=== PATIENT | female | born 1980 | race Caucasian/White ===

== ENCOUNTER → 2023-05-18 09:15 | Outpatient (CLI) | payer OTHER, SELFPAY ==
--- NOTE | 2023-05-18 09:26 | XR_ITS ---
FINAL REPORT CLINICAL HISTORY: Low back pain, pain down right leg COMPARISON: None FINDINGS: 3 views of the lumbar spine were obtained. There is no evidence of fracture or dislocation. The vertebral alignment is normal. Disc spaces are preserved. There is minimal anterior osteophyte formation at L4-5. IMPRESSION: No acute bony abnormality. Reviewed, Interpreted and Dictated by Surendra Portillo MD Transcribed by Analisa Gan Authenticated and [facility]
== END ==
PROVIDERS: PCP Nurse Practitioner Family; Visit Provider Nurse Practitioner Family
DX: M54.50 Low back pain, unspecified (principal)
CPT/HCPCS: 72100